=== PATIENT | male | born 1975 | race Caucasian/White ===

== ENCOUNTER 2024-01-07 11:42 | Day surgery (SDC) | payer OTHER ==
[2024-01-03 11:53] VITALS: BMI 24.0
[2024-01-07] MEDS ORDERED: PROPOFOL 60 ML ONE (13:29)
[2024-01-07] MEDS ORDERED: LIDOCAINE HCL/PF 2% SDV 5ML VIAL ONE (13:29)
[2024-01-07 13:56] VITALS: RESP 18; TEMP 97.1
[2024-01-07 14:57] VITALS: BP 124/74; PULSE 76
== END 2024-01-07 14:59 | disposition home or self-care (01) ==
LOC: FASU-ENDO 11:42
PROVIDERS: ATTEND Internal Medicine Gastroenterology
PROC: 0DBN8ZX Excision of Sigmoid Colon, Via Natural or Artificial Opening Endoscopic, Diagnostic (ICD-10-PCS; 2024-01-07)
PROC: 0DBP8ZX Excision of Rectum, Via Natural or Artificial Opening Endoscopic, Diagnostic (ICD-10-PCS; principal; 2024-01-07 13:32)
DX: Z12.11 Encounter for screening for malignant neoplasm of colon (principal); K64.1 Second degree hemorrhoids; K57.30 Diverticulosis of large intestine without perforation or abscess without bleeding; K63.5 Polyp of colon; K62.1 Rectal polyp
CPT/HCPCS: 88305-TC